=== PATIENT | female | born 1990 | race Hispanic/Latino ===

== ENCOUNTER 2024-04-12 17:00 | Outpatient (RCR) | payer OTHER | END 2024-04-13 | LOC: PT 17:00 | PROVIDERS: ATTEND Physician Assistant | DX: M75.42 Impingement syndrome of left shoulder (principal) ==

== ENCOUNTER 2024-06-15 14:35 | Outpatient (RCR) | payer OTHER | END 2024-07-14 | LOC: PT 14:35 | PROVIDERS: ATTEND Physician Assistant | DX: M75.42 Impingement syndrome of left shoulder (principal) ==